=== PATIENT | male | born 1970 | race American Indian/Alaskan Native ===

== ENCOUNTER 2018-08-08 15:55 | Emergency (ER) | payer OTHER ==
[2018-08-08 16:35] VITALS: BP 113/57
--- NOTE | 2018-08-08 16:37 | Emergency Department Report ---
Chief Complaint: Chest Pain Stated Complaint: CHEST PRESSURE/PAIN Time Seen by Provider: 08/08/18 16:34 - HPI History of Present Illness: CP HEAVY OFF AND ON FOR MONTHS HAS STRESS TEST SCHEDULED NON SMOKER PMH HPLD MOM AND DAD A/W WITHOUT CARD PROBLEMS - Exam Vital Signs: Vital Signs 08/08/18 16:30 Temperature 98.0 F Pulse Rate 75 Respiratory 16 Rate Blood Pressure 113/57 O2 Sat by Pulse 99 Oximetry MSE screening note: Focused history and physical exam performed. Due to findings the following was ordered: ED Disposition for MSE Condition: Stable
[2018-08-08 17:03] LABS: Basophils % (Auto) 0.9 % (0.0-1.8); Eosinophils # (Auto) 0.3 K/mm3 (0.0-0.4); Eosinophils % (Auto) 5.2 % (0.0-4.3); Hematocrit 42.9 % (35.5-45.6); Hemoglobin 14.3 gm/dl (11.8-15.2); Lymphocytes # (Auto) 2.1 K/mm3 (1.2-5.4); Lymphocytes % (Auto) 41.5 % (13.4-35.0); Mean Corpuscular HGB Conc 33 % (32-34); Mean Corpuscular Volume 86 fl (84-94); Monocytes # (Auto) 0.5 K/mm3 (0.0-0.8); Monocytes % (Auto) 9.9 % (0.0-7.3); Platelet Count 208 K/mm3 (140-440); Red Blood Count 4.97 M/mm3 (3.65-5.03); Red Cell Distribution Width 13.8 % (13.2-15.2)
--- NOTE | 2018-08-08 17:21 | XRay Report ---
PROCEDURE: XR CHEST ROUTINE 2V TECHNIQUE: PA and lateral chest HISTORY: Chest Pain COMPARISONS: No priors FINDINGS: Cardiomediastinal silhouette within normal limits. No airspace consolidation or pleural effusions. Pulmonary vasculature are within normal limits. IMPRESSION: No radiographic evidence of acute cardiopulmonary disease.. This document is electronically signed by Max King MD., August 08 2018 05:19:24 PM ET
[2018-08-08 17:24] LABS: Alanine Aminotransferase 17 units/L (7-56); Albumin 4.5 g/dL (3.9-5); BUN/Creatinine Ratio 19; Blood Urea Nitrogen 19 mg/dL (9-20); Calcium 9.9 mg/dL (8.4-10.2); Hemolysis Index 11
--- NOTE | 2018-08-08 18:28 | Emergency Department Report ---
ED Chest Pain HPI - General Chief Complaint: Chest Pain Stated Complaint: CHEST PRESSURE/PAIN Time Seen by Provider: 08/08/18 16:34 Source: patient Mode of arrival: Ambulatory Limitations: No Limitations - History of Present Illness Initial Comments: 48 YO MALE WITH MONTHS HX OF ANT RIGHT AND LEFT SIDED CP. PRESSURE AND SOMETIMES SHARP. HE HAS NO CARDIAC HISTORY. HE IS MUCH YOUNGER THAN STATED AGE AND OF NORMAL WEIGHT. NO FAMILY HX OF CAD. No associated signs or symptoms. no sob. nothing makes it better or worse. Pt seems worried about it. HE HAS A PCP AND HE HAS A STRESS TEST SCHEDULED IN AUGUST. MD Complaint: chest pain -: Gradual, month(s) Onset: during rest, during exertion Pain Location: left chest, right chest Pain Radiation: none Severity: mild Severity scale (0 -10): 4 Quality: aching Consistency: intermittent Improves With: nothing Worsens With: nothing re: denies: nausea, vomting, diaphoresis, dyspnea, sense of impending doom Other Symptoms: denies: cough, fever, syncope, rash, acid taste in mouth, leg swelling, palpitations, burping Treatments Prior to Arrival: none Aspirin use within the Past 7 Days: (0) No - Related Data On Oral Contraceptives: No Allergies Allergy/AdvReac Type Severity Reaction Status Date / Time No Known Allergies Allergy Verified 08/08/18 15:58 Heart Score - HEART Score History: Slightly suspicious EKG: Normal Age: 45-65 Risk factors: No known risk factors Troponin: < normal limit HEART Score: 1 ED Review of Systems ROS: Stated complaint: CHEST PRESSURE/PAIN Other details as noted in HPI Comment: All other systems reviewed and negative ED Past Medical Hx - Past Medical History Previous Medical History?: Yes Additional medical history: high cholesterol - Surgical History Past Surgical History?: No - Family History Family history: no significant, other (mother and dad with no cad) - Social History Smoking Status: Never Smoker Substance Use Type: None ED Physical Exam - General Limitations: No Limitations General appearance: alert, in no apparent distress - Head Head exam: Present: atraumatic, normocephalic - Eye Eye exam: Present: normal appearance, PERRL - ENT ENT exam: Present: normal exam, mucous membranes moist - Neck Neck exam: Present: normal inspection - Respiratory Respiratory exam: Present: normal lung sounds bilaterally - Cardiovascular Cardiovascular Exam: Present: regular rate - GI/Abdominal GI/Abdominal exam: Present: soft, normal bowel sounds - Rectal Rectal exam: Present: deferred - Extremities Exam Extremities exam: Present: normal inspection, full ROM - Back Exam Back exam: Present: normal inspection, full ROM - Neurological Exam Neurological exam: Present: alert, oriented X3, CN II-XII intact - Psychiatric Psychiatric exam: Present: normal affect, normal mood - Skin Skin exam: Present: warm, dry, intact ED Course Vital Signs 08/08/18 16:30 Temperature 98.0 F Pulse Rate 75 Respiratory 16 Rate Blood Pressure 113/57 O2 Sat by Pulse 99 Oximetry ROGELIO score - Rogelio Score Age > 65: (0) No Aspirin use within the Past 7 Days: (0) No 3 or more CAD Risk Factors: (0) No 2 or more Angina events in past 24 hrs: (0) No Known CAD with more than 50% Stenosis: (0) No Elevated Cardiac Markers: (0) No ST Deviation Greater than 0.5mm: (0) No ROGELIO Score: 0 ED Medical Decision Making - Lab Data Result diagrams: 08/08/18 16:51 08/08/18 16:51 - EKG Data EKG shows normal: sinus rhythm Rate: normal - EKG Data When compared to previous EKG there are: no significant change Interpretation: no acute changes - Radiology Data Radiology results: report reviewed, image reviewed - Medical Decision Making Labs 08/08/18 08/08/18 16:51 16:51 WBC 5.0 RBC 4.97 Hgb 14.3 Hct 42.9 MCV 86 MCH 29 MCHC 33 RDW 13.8 Plt Count 208 Lymph % (Auto) 41.5 H [place] % (Auto) 9.9 H Eos % (Auto) 5.2 H Baso % (Auto) 0.9 Lymph # 2.1 [place] # 0.5 Eos # 0.3 Baso # 0.0 Seg Neutrophils % 42.5 Seg Neutrophils # 2.1 Sodium 142 Potassium 4.9 Chloride 102.2 Carbon Dioxide 29 Anion Gap 16 BUN 19 Creatinine 1.0 Estimated GFR > 60 BUN/Creatinine Ratio 19 Glucose 98 Calcium 9.9 Total Bilirubin 0.20 AST 20 ALT 17 Alkaline Phosphatase 40 Troponin T < 0.010 Total Protein 8.1 Albumin 4.5 Albumin/Globulin Ratio 1.3 Vital Signs 08/08/18 16:30 Temperature 98.0 F Pulse Rate 75 Respiratory 16 Rate Blood Pressure 113/57 O2 Sat by Pulse 99 Oximetry reviewed findings w pt he denies cig/etoh or drugs we reviewed risk factors he was relieved will dc home with follow up as he has planned Critical care attestation.: If time is entered above; I have spent that time in minutes in the direct care of this critically ill patient, excluding procedure time. ED Disposition Clinical Impression: Chest wall pain Disposition: DC-01 TO HOME OR SELFCARE Is pt being admited?: No Does the pt Need Aspirin: No Condition: Stable Instructions: Costochondritis (ED) Additional Instructions: FOLLOW UP WITH DOCTOR YOU HAVE PLANNED TROPONIN NORMAL TODAY; IS ALL OF YOUR TESTS DIET AND ACTIVITY TOLERATED Referrals: [facility] [Outside] - 3-5 Days Time of Disposition: 18:28
== END 2018-08-08 18:28 | disposition home or self-care (01) ==
LOC: EDBD → ED 15:55
DX: R07.89 Other chest pain (principal); E78.00 Pure hypercholesterolemia, unspecified
CPT/HCPCS: 36415; 71046; 80053; 84484; 85025; 93005; 93010; 99283